=== PATIENT | female | born 1960 | race Caucasian/White ===

== ENCOUNTER 2023-11-14 21:32 | Emergency (ER) | payer MEDICARE, SELFPAY ==
[2023-11-14] VITALS (11 sets, daily range): BP systolic 108–133; BP diastolic 58–70; PULSE 85–99; RESP 20–63; TEMP 36.7; O2SAT 92–96; BMI 28.6
--- NOTE | 2023-11-14 21:46 | ED_ITS ---
HPI - Chest Pain General Chief Complaint: Chest Pain Stated Complaint: CP Time Seen by Provider: 11/14/23 21:34 History of Present Illness HPI narrative: 63-year-old female with history of fibromyalgia, hypertension, hyperlipidemia presents by EMS from the [facility] for chest pain and back pain. Patient states that she was having a good time with her girlfriend when her chest pain started and spread to her back. She states that she has never had anything like this happened to her before. EMS administered aspirin and nitroglycerin. The nitroglycerin did not alleviate her pain and so they gave her 5 mg of morphine, which did improve symptoms. Patient denies personal history of heart disease. Related Data Allergies Allergy/AdvReac Type Severity Reaction Status Date / Time No Allergy Information Allergy Verified 11/14/23 22:51 Available Patient History Social History Smoking Status: Never smoker Exam Initial Vital Signs Initial Vital Signs: Vital Signs Pulse Rate 91 H 11/14/23 21:36 Respiratory Rate 63 H 11/14/23 21:36 Pulse Oximetry 93 11/14/23 21:36 Const: Awake, alert, uncomfortable, nontoxic appearing Cardiac: regular rate, regular rhythm RESP: unlabored, clear bilaterally, no wheezing Skin: Warm, Dry, intact, no rashes Neuro: AO x3, CN II-XII grossly intact, moves all extremities Course Orders Ordered: ED Orders 11/14/23 21:30 CBC Auto Diff [Complete Blood Count AUTO DIFF] Stat CMP [Comprehensive Metabolic Panel] Stat D Dimer Stat Ethanol (ETOH) Stat MAG [Magnesium] Stat PT [Prothrombin Time INR] Stat Troponin & CK Cardiac Panel Stat 11/14/23 21:46 Chest [XR chest 1V] Stat EKG-12 Lead Stat 11/15/23 00:28 Trop I [Troponin I] Stat 11/15/23 00:46 CT angio chest abdomen pelvis Stat Discontinued Medications Al Hydrox/Mg Hydrox/Simethicone (Mag Hydrox/Alum/Simeth 30 Ml Udc) 30 ml PO NOW ONE Stop: 11/15/23 01:00 Last Admin: 11/15/23 01:17 Dose: 30 ml Documented By: JOSSUE Diazepam (Diazepam 10 Mg/2 Ml Syringe) 3 mg IV NOW ONE Stop: 11/15/23 01:00 Last Admin: 11/15/23 01:18 Dose: 3 mg Documented By: JOSSUE Lidocaine (Lidocaine 5% Patch) 1 each TOP NOW ONE Stop: 11/14/23 22:21 Last Admin: 11/14/23 22:41 Dose: 1 each Documented By: ROSALIA Lidocaine HCl (Lidocaine Viscous 2% 15 Ml Solution) 15 ml PO NOW ONE Stop: 11/15/23 01:00 Last Admin: 11/15/23 01:17 Dose: 15 ml Documented By: JOSSUE Morphine Sulfate (Morphine 4 Mg/Ml Inj) 4 mg IV NOW ONE Stop: 11/14/23 21:46 Last Admin: 11/14/23 21:57 Dose: 4 mg Documented By: ROSALIA Vital Signs Vital signs: Vital Signs - 8 hr 11/14/23 22:30 11/14/23 22:30 11/14/23 23:00 Pulse Rate 96 H 92 H Respiratory Rate Blood Pressure 130/62 Pulse Oximetry 96 92 11/14/23 23:30 11/14/23 23:44 11/14/23 23:44 Pulse Rate 91 H 93 H Respiratory Rate Blood Pressure 129/58 L Pulse Oximetry 94 94 11/15/23 00:00 11/15/23 00:30 11/15/23 01:15 Pulse Rate 88 87 Respiratory Rate Blood Pressure Pulse Oximetry 92 93 11/15/23 01:24 11/15/23 01:30 11/15/23 01:30 Pulse Rate 87 88 Respiratory Rate Blood Pressure 129/57 L Pulse Oximetry 96 95 11/15/23 02:00 11/15/23 02:00 11/15/23 02:30 Pulse Rate 81 Respiratory Rate Blood Pressure 121/59 L 102/52 L Pulse Oximetry 95 11/15/23 02:30 11/15/23 03:00 11/15/23 03:00 Pulse Rate 83 82 Respiratory Rate 16 Blood Pressure 108/51 L Pulse Oximetry 97 97 11/15/23 03:30 11/15/23 03:30 11/15/23 04:00 Pulse Rate 80 Respiratory Rate Blood Pressure 106/55 L 100/51 L Pulse Oximetry 98 11/15/23 04:00 11/15/23 04:30 11/15/23 04:30 Pulse Rate 79 72 Respiratory Rate Blood Pressure 110/56 L Pulse Oximetry 97 96 11/15/23 05:00 11/15/23 05:00 11/15/23 05:30 Pulse Rate 74 Respiratory Rate Blood Pressure 112/55 L 100/54 L Pulse Oximetry 96 11/15/23 05:30 Pulse Rate 75 Respiratory Rate Blood Pressure Pulse Oximetry 97 MDM - Chest Pain Differential Diagnosis Differential diagnosis: Likely unstable angina pectoris, atypical chest pain and costochondritis Lab Data 11/14/23 21:30 11/14/23 21:30 Labs: Lab Results 11/14/23 11/15/23 Range/Units 21:30 00:28 WBC 12.7 H (4.5-11.0) X10^3/uL RBC 4.69 (4.0-5.2) X10^6/uL Hgb 13.6 (12.0-16.0) g/dL Hct 40.8 (36-46) % MCV 87.1 (80-100) fL MCH 29.1 (26-34) PG MCHC 33.4 (30-36) % RDW 14.1 (11.6-14.8) % Plt Count 281 (150-400) X10^3/uL Neut % (Auto) 54.2 (50-75) % Lymph % (Auto) 39.2 (25-40) % Cache % (Auto) 5.2 (3-14) % Eos % (Auto) 0.6 L (2-4) % Baso % (Auto) 0.8 (0-2) % Neut # (Auto) 6900 (6280-4819) /uL Lymph # (Auto) 5000 H (3665-0205) /uL [place] # (Auto) 700 (0-900) /uL Eos # (Auto) 100 (0-450) /uL Baso # (Auto) 100 (0-100) /uL PT 11.4 (9.4-12.5) SECONDS INR 1.0 (0.9-1.3) D-Dimer < 215 (<500) ng/ml Sodium 136 L (137-145) mmol/L Potassium 3.2 L (3.4-5.1) mmol/L Chloride 99 (98-107) mmol/L Carbon Dioxide 22 (22-32) mmol/L BUN 19 H (7-17) mg/dL Creatinine 0.78 (0.52-1.04) mg/dL Estimated GFR > 60 (>60) mL/min BUN/Creatinine Ratio 24.4 H (6-22) Glucose 93 (80-110) mg/dL Calcium 9.3 (8.4-10.2) mg/dL Magnesium 1.9 (1.6-2.3) mg/dL Total Bilirubin 0.7 (0.2-1.3) mg/dL AST 131 H (14-36) IU/L ALT 82 H (<35) IU/L Alkaline Phosphatase 71 (38-126) U/L Total Creatine Kinase 65 (30-135) U/L Troponin I < 0.012 < 0.012 (0.01-0.034) ng/mL Total Protein 7.8 (6.3-8.2) g/dL Albumin 4.8 (3.5-5.0) g/dL Globulin 3.0 (1.7-4.1) g/dL Albumin/Globulin Ratio 1.6 (1.0-2.8) Ethyl Alcohol 174 H ( - 10) mg/dL Imaging Data Chest x-ray: Radiologist's Impression: PROCEDURE: XR CHEST 1V INDICATIONS: CHEST PAIN TECHNIQUE: One view of the chest was acquired. COMPARISON: None. FINDINGS: Surgical changes and devices: None. Lungs and pleura: Lungs are clear. No pleural effusions or pneumothorax. Mediastinum: Mediastinal contours appear normal. Heart size is normal. Bones and chest wall: No suspicious bony lesions. Overlying soft tissues appear unremarkable. IMPRESSION: No acute cardiopulmonary pathology. Dictated by: Dennis Musa M.D. on 11/14/2023 at 22:01 Approved by: Dennis Musa M.D. on 11/14/2023 at 22:02 CT scan - chest: Radiologist's Impression: PROCEDURE: CT ANGIO CHEST ABDOMEN PELVIS INDICATIONS: CHEST-BACK PAIN TECHNIQUE: Precontrast 5 mm thick sections acquired from the lung apices to the iliac crests. After the administration of intravenous contrast, 2.5 mm thick sections again acquired from the lung apices to the iliac crests. Maximum intensity projection (MIP) oblique sagittal and coronal reformats were then acquired. For radiation dose reduction, the following was used: automated exposure control. COMPARISON: None. FINDINGS: Image quality: Diagnostic. AORTA: No aortic aneurysm. No acute aortic syndrome. CHEST: Lower Neck: No enlarged lymph nodes. Thyroid: No thyroid nodules which require sonographic evaluation.. Axillae: No enlarged lymph nodes. Chest Wall: Bilateral breast implants are intact. Lungs and Pleura: No pneumothorax or pleural effusions. No consolidation or suspicious nodules. Heart: Heart size is mildly enlarged. No pericardial effusion. Thoracic Vessels: Pulmonary arteries demonstrate normal size. No intraluminal filling defects are seen to suggest central pulmonary embolus. Mediastinum and Philomena: No enlarged lymph nodes. Esophagus: No wall thickening. No hiatal hernia. ABDOMEN: Liver: No solid mass. Moderate hepatic steatosis is seen. Gallbladder: Gallbladder is surgically absent. Biliary ducts: No biliary dilation. Pancreas: No ductal dilation. Spleen: Size is within normal limits. Adrenal Glands: No adrenal nodules. Kidneys and Ureters: No hydronephrosis. No solid mass. No complex renal cystic lesion which requires follow up. Stomach and Bowel: Normal colonic caliber, without significant wall thickening. No bowel obstruction. No abscess collection. No mesenteric fat stranding. Peritoneum: No abnormal intraperitoneal fluid. No free air. Ventral Wall: No hernia. Abdominal Nodes: No retroperitoneal or mesenteric adenopathy by size criteria. Vessels: Inferior vena cava is normal in size. PELVIS: Pelvic Organs: Unremarkable. Bladder: Unremarkable. Pelvic Nodes: No enlarged lymph nodes. Miscellaneous: No inguinal hernias are seen. Bones: No aggressive appearing bony lesions. No displaced rib fractures. No acute compression fracture or spondylolisthesis in thoracic and lumbar spine. [id number] degenerative disc disease throughout lumbar spine and thoracic spine is seen. IMPRESSION: 1. No aortic aneurysm or dissection. No hemodynamically significant stenosis or aneurysm is seen in the major branches of thoracic and abdominal aorta. No central pulmonary embolus. 2. Bilateral lungs are clear. 3. No acute inflammatory process is seen in abdomen or pelvis. 4. Tvyv-eg-xqlnxjqm degenerative disc disease throughout thoracic and lumbar spine. No acute vertebral body compression fracture. Dictated by: Dennis Musa M.D. on 11/15/2023 at 1:34 Approved by: Dennis Musa M.D. on 11/15/2023 at 1:38 ECG Data Interpretation: Normal sinus rhythm at 86 beats per minute. Slightly prolonged NM, no ST T wave changes, no STEMI MDM Narrative Medical decision making narrative: Chest and [place]. Hemodynamically stable. EKG normal sinus rhythm without obvious ischemia. Since patient was complaining of both chest and back pain Laboratory work, chest x-ray, D-dimer ordered. Laboratory work reviewed, WBC count 12.7, hemoglobin 13.6, platelets 281, sodium 136, potassium 3.2, creatinine 0.78, AST 131, ALT 82, T bili 0.7, troponin undetectable x2, D-dimer less than 215. Patient initially reported improvement in pain, however prior to 2nd troponin draw patient began complaining again of chest and back pain. Patient states that it feels very intense and she has never had anything like this before. D-dimer is negative, and overall I have low suspicion for dissection, however given patient's description of pain as well as it is reported severity a CT angio will be ordered. CT angio negative for dissection, PE, other acute life-threatening abnormalities. Patient informed of lab and imaging findings, counseled to follow up with her primary care doctor when [place] gets [place] to [place]. Discharge Plan Departure Patient Disposition: Home Clinical Impression: Chest pain, Back pain Instructions: DI for Chest Pain Activity Restrictions/Additional Instructions: Your blood work, CT imaging, EKG were all normal. I do not know the cause of your chest pain or back pain but it does not appear to be a blood clot, heart attack, artery tear, or other life-threatening condition. You may take Tylenol and ibuprofen as well as your usual medications. When you go back home follow up with your primary care physician. Stand Alone Forms: Patient Portal/API
--- NOTE | 2023-11-14 21:46 | EKG_ITS ---
[address] [address] Test Date: 2023-11-14 Pat Name: Gayle Brito Department: [facility] Room: Gender: Female Structural Drafter: VIVI : 1960 Requested By: Order Number: [id number] Reading MD: Saman Grimes MD Measurements Intervals [place] Rate: 86 P: 49 [place]: 208 QRS: 7 QRSD: 96 T: 46 QT: 382 QTc: 457 Interpretive Statements Normal sinus rhythm Possible Left atrial enlargement Electronically Signed On 11-15-2023 4:52:47 PDT by Saman Grimes MD
[2023-11-14] MEDS: MORPHINE 4 MG/ML INJ IV (21:57)
[2023-11-14 22:17] LABS: Add Manual Diff / Slide Review NO; Basophils Absolute Auto 100 /uL (0-100); Basophils Percent Auto 0.8 % (0-2); Eosinophils Absolute Auto 100 /uL (0-450); Eosinophils Percent Auto 0.6 % (2-4); Hematocrit 40.8 % (36-46); Hemoglobin 13.6 g/dL (12.0-16.0); Lymphocytes Absolute Auto 5000 /uL (1100-4500); Lymphocytes Percent Auto 39.2 % (25-40); Mean Corpuscular HGB Conc 33.4 % (30-36); Mean Corpuscular Hemoglobin 29.1 PG (26-34); Mean Corpuscular Volume 87.1 fL (80-100); Monocytes Absolute Auto 700 /uL (0-900); Monocytes Percent Auto 5.2 % (3-14); Neutrophils Absolute Auto 6900 /uL (1500-7000); Neutrophils Percent Auto 54.2 % (50-75); Platelet Count 281 X10^3/uL (150-400); Red Blood Cell Count 4.69 X10^6/uL (4.0-5.2); Red Cell Distribution Width 14.1 % (11.6-14.8); White Blood Cell Count 12.7 X10^3/uL (4.5-11.0)
[2023-11-14 22:18] LABS: Prothrombin Time 11.4 SECONDS (9.4-12.5)
--- NOTE | 2023-11-14 22:24 | PC.NURSE ---
Pt reports that pain is now worse in back than in chest and increasing. VS remain stable. Dr. Rowe informed. No new orders rcv'd at this time.
[2023-11-14 22:25] LABS: Alanine Aminotransferase 82 IU/L (<35); Albumin 4.8 g/dL (3.5-5.0); Albumin Globulin Ratio 1.6 (1.0-2.8); Alkaline Phosphatase 71 U/L (38-126); Aspartate Aminotransferase 131 IU/L (14-36); BUN Creatinine Ratio 24.4 (6-22); Bilirubin Total 0.7 mg/dL (0.2-1.3); Blood Urea Nitrogen 19 mg/dL (7-17); Calcium 9.3 mg/dL (8.4-10.2); Carbon Dioxide 22 mmol/L (22-32); Chloride 99 mmol/L (98-107); Creatine Kinase 65 U/L (30-135); D Dimer < 215 ng/ml (<500); Estimated Glomerular Filt Rate > 60 mL/min (>60); Ethanol (ETOH) 174 mg/dL; Glucose 93 mg/dL (80-110); HEMOLYSIS 32 (0-50); Magnesium 1.9 mg/dL (1.6-2.3); Potassium 3.2 mmol/L (3.4-5.1); Sodium 136 mmol/L (137-145); Total Protein 7.8 g/dL (6.3-8.2)
[2023-11-14 22:36] LABS: Troponin I < 0.012 ng/mL (0.01-0.034)
--- NOTE | 2023-11-14 22:38 | PC.NURSE ---
Pt ambulatory to restroom without difficulty or assistance.
[2023-11-14] MEDS: LIDOCAINE 5% PATCH 1 EACH TOP (22:41)
--- NOTE | 2023-11-14 23:48 | PC.NURSE ---
Ambulatory to restroom without difficulty or assistance.
[2023-11-15] VITALS (13 sets, daily range): BP systolic 100–129; BP diastolic 51–59; PULSE 72–88; RESP 16; O2SAT 92–98
--- NOTE | 2023-11-15 00:28 | PC.NURSE ---
Rpt trop drawn from existing IV line
--- NOTE | 2023-11-15 00:46 | DI.CT.S_ITS ---
PROCEDURE: CT ANGIO CHEST ABDOMEN PELVIS INDICATIONS: CHEST-BACK PAIN TECHNIQUE: Precontrast 5 mm thick sections acquired from the lung apices to the iliac crests. After the administration of intravenous contrast, 2.5 mm thick sections again acquired from the lung apices to the iliac crests. Maximum intensity projection (MIP) oblique sagittal and coronal reformats were then acquired. For radiation dose reduction, the following was used: automated exposure control. COMPARISON: None. FINDINGS: Image quality: Diagnostic. AORTA: No aortic aneurysm. No acute aortic syndrome. CHEST: Lower Neck: No enlarged lymph nodes. Thyroid: No thyroid nodules which require sonographic evaluation.. Axillae: No enlarged lymph nodes. Chest Wall: Bilateral breast implants are intact. Lungs and Pleura: No pneumothorax or pleural effusions. No consolidation or suspicious nodules. Heart: Heart size is mildly enlarged. No pericardial effusion. Thoracic Vessels: Pulmonary arteries demonstrate normal size. No intraluminal filling defects are seen to suggest central pulmonary embolus. Mediastinum and Philomena: No enlarged lymph nodes. Esophagus: No wall thickening. No hiatal hernia. ABDOMEN: Liver: No solid mass. Moderate hepatic steatosis is seen. Gallbladder: Gallbladder is surgically absent. Biliary ducts: No biliary dilation. Pancreas: No ductal dilation. Spleen: Size is within normal limits. Adrenal Glands: No adrenal nodules. Kidneys and Ureters: No hydronephrosis. No solid mass. No complex renal cystic lesion which requires follow up. Stomach and Bowel: Normal colonic caliber, without significant wall thickening. No bowel obstruction. No abscess collection. No mesenteric fat stranding. Peritoneum: No abnormal intraperitoneal fluid. No free air. Ventral Wall: No hernia. Abdominal Nodes: No retroperitoneal or mesenteric adenopathy by size criteria. Vessels: Inferior vena cava is normal in size. PELVIS: Pelvic Organs: Unremarkable. Bladder: Unremarkable. Pelvic Nodes: No enlarged lymph nodes. Miscellaneous: No inguinal hernias are seen. Bones: No aggressive appearing bony lesions. No displaced rib fractures. No acute compression fracture or spondylolisthesis in thoracic and lumbar spine. Agtc-uw-[id number] degenerative disc disease throughout lumbar spine and thoracic spine is seen. IMPRESSION: 1. No aortic aneurysm or dissection. No hemodynamically significant stenosis or aneurysm is seen in the major branches of thoracic and abdominal aorta. No central pulmonary embolus. 2. Bilateral lungs are clear. 3. No acute inflammatory process is seen in abdomen or pelvis. 4. Iaoi-tc-pjtaaqek degenerative disc disease throughout thoracic and lumbar spine. No acute vertebral body compression fracture. Dictated by: Dennis Musa M.D. on 11/15/2023 at 1:34 Approved by: Dennis Musa M.D. on 11/15/2023 at 1:38
[2023-11-15 01:02] LABS: Troponin I < 0.012 ng/mL (0.01-0.034)
[2023-11-15] MEDS: LIDOCAINE VISCOUS 2% 15 ML SOLUTION PO (01:17)
[2023-11-15] MEDS: MAG HYDROX/ALUM/SIMETH 30 ML UDC PO (01:17)
[2023-11-15] MEDS: diazePAM 10 MG/2 ML SYRINGE 3 MG IV (01:18)
--- NOTE | 2023-11-15 03:02 | PC.NURSE ---
Pt resting quietly with eyes closed, resps even and not labored. No distress noted at this time. Pt will remain in ED until ride available to pick her up.
--- NOTE | 2023-11-15 05:43 | PC.NURSE ---
Pt ambulatory to restroom without difficulty or assistance. Attempting to phone friend for a ride at this time.
== END 2023-11-15 06:32 | disposition home or self-care (01) ==
PROVIDERS: Emergency Provider Emergency Medicine
DX: R07.9 Chest pain, unspecified (principal); M54.9 Dorsalgia, unspecified; I10 Essential (primary) hypertension; E78.5 Hyperlipidemia, unspecified; R79.89 Other specified abnormal findings of blood chemistry
CPT/HCPCS: 71045; 71275; 74174; 80053; 80320; 82550; 83735; 84484; 85025; 85379; 85610; 93005; 93010; 96374; 96375; 99284; J2270; J3360; Q9967